=== PATIENT | female | born 1980 | race Caucasian/White ===

== ENCOUNTER 2019-06-19 18:26 | Inpatient (IN) | payer OTHER ==
[~2019-06-19] VITALS: Ht 172.7 cm; Wt 90.3 kg
[~2019-06-19 18:26] MED LIST: METF-445 PO
[2019-06-19] MEDS ORDERED: DOXY100C PO (18:55)
[2019-06-19 19:01] LABS: GLUCOSE,POINT OF CARE 205 MG/DL (70-110)
[2019-06-19] MEDS ORDERED: CeFAZolin 1 GM/DEXTROSE 50 ML IV ONE (20:45)
[2019-06-19 20:50] LABS: BASOPHILS % (AUTO) 0.7 % (0.0-2.0); EOSINOPHILS % (AUTO) 5.6 % (1.0-6.0); HEMATOCRIT 37.8 % (36-46); HEMOGLOBIN 12.7 g/dL (12.0-16.0); LYMPHOCYTES # (AUTO) 3.2 K/uL (1.0-4.8); LYMPHOCYTES % (AUTO) 40.7 % (22.0-44.0); MEAN CORPUSCULAR HGB CONC 33.7 G/dL (31.0-37.0); MEAN CORPUSCULAR VOLUME 86 fL (80-100); MONOCYTES # (AUTO) 0.6 K/uL (0.1-1.0); NEUTROPHILS # (AUTO) 3.6 K/uL (1.8-7.7); PLATELET COUNT (AUTO) 321 K/uL (150-450); RED CELL DISTRIBUTION WIDTH 13.8 % (11.5-14.5)
[2019-06-19 21:11] LABS: CALCIUM, TOTAL 8.9 mg/dL (8.8-10.5); CREATININE 1.25 mg/dL (0.60-1.30)
[2019-06-19 21:18] LABS: ALBUMIN 3.7 g/dL (3.4-5.0); BILIRUBIN,TOTAL 0.3 mg/dL (0.1-1.0); TOTAL PROTEIN, SERUM 8.6 g/dL (6.4-8.2)
[2019-06-19] MEDS ORDERED: ACETAMINOPHEN 325 MG TABLET PO PRN ×2 (21:30→22:30)
[2019-06-19] MEDS ORDERED: ONDANSETRON HCL 4 MG/2 ML VIAL IVP PRN ×2 (21:30→22:30)
[2019-06-19] MEDS ORDERED: 0.9% SODIUM CHLORIDE 10 ML SYRINGE IVP PRN (21:30)
[2019-06-19] MEDS ORDERED: ZOLPIDEM TARTRATE 5 MG TABLET PO PRN (22:30)
[2019-06-19] MEDS ORDERED: BISACODYL 10 MG RECTAL RECTAL SUPPOSITORY PR PRN (22:30)
[2019-06-19] MEDS ORDERED: MORPHINE SULFATE 2 MG/ML SYRINGE IVP PRN (22:30)
[2019-06-19] MEDS ORDERED: MAGNESIUM HYDROXIDE SUSPENSION 30 ML UDCUP PO PRN (22:30)
[2019-06-19 23:14] VITALS: BP 133/77
[2019-06-19] MEDS: HYDROCODONE/ACETAMINOPHEN 5-325 MG TABLET PO PRN (23:31)
[2019-06-19] MEDS: HEPARIN SODIUM,PORCINE 5,000 UNITS/ML VIAL SQ SCH (23:31)
[2019-06-20] MEDS ORDERED: SODIUM CHLORIDE 0.9% 500 ML IV ONE (01:50)
[2019-06-20] MEDS: CeFAZolin 2 GM/DEXTROSE 50 ML IV SCH ×2 (02:07→14:23)
[2019-06-20 04:34] VITALS: BP 133/82
[2019-06-20] MEDS ORDERED: DEXTROSE 50%-WATER 25 GM/50 ML SYRINGE IVP PRN (06:00)
[2019-06-20 06:22] LABS: BASOPHILS % (AUTO) 0.6 % (0.0-2.0); EOSINOPHILS % (AUTO) 6.9 % (1.0-6.0); HEMATOCRIT 33.3 % (36-46); HEMOGLOBIN 11.1 g/dL (12.0-16.0); LYMPHOCYTES # (AUTO) 3.2 K/uL (1.0-4.8); MEAN CORPUSCULAR HEMOGLOBIN 28.5 pg (26.0-34.0); MEAN CORPUSCULAR HGB CONC 33.2 G/dL (31.0-37.0); MEAN CORPUSCULAR VOLUME 86 fL (80-100); MONOCYTES # (AUTO) 0.6 K/uL (0.1-1.0); MONOCYTES % (AUTO) 8.2 % (2.0-9.0); NEUTROPHILS # (AUTO) 3.4 K/uL (1.8-7.7); NEUTROPHILS % (AUTO) 43.3 % (40.0-70.0); PLATELET COUNT (AUTO) 297 K/uL (150-450); RED BLOOD CELL COUNT(AUTO) 3.88 MIL/uL (4.00-5.20); RED CELL DISTRIBUTION WIDTH 13.8 % (11.5-14.5)
[2019-06-20] MEDS: INSULIN LISPRO 100 UNITS/ML SQ PRN ×4 (06:47→17:48)
[2019-06-20 06:48] LABS: CALCIUM, TOTAL 8.9 mg/dL (8.8-10.5); CREATININE 1.28 mg/dL (0.60-1.30); POTASSIUM 4.3 mmol/L (3.5-5.1)
[2019-06-20 07:47] VITALS: BP 114/82
[2019-06-20] MEDS: HYDROCODONE/ACETAMINOPHEN 5-325 MG TABLET PO PRN ×3 (07:47→19:44)
[2019-06-20 07:51] LABS: GLUCOMETER DEV NAME(LOC) 6N.1; GLUCOSE,POINT OF CARE 213 MG/DL (70-110)
[2019-06-20 08:16] LABS: GLUCOMETER DEV NAME(LOC) 6N.1; GLUCOSE,POINT OF CARE 192 MG/DL (70-110)
[2019-06-20] MEDS: HEPARIN SODIUM,PORCINE 5,000 UNITS/ML VIAL SQ SCH ×2 (08:58→16:04)
[2019-06-20] MEDS: MetFORMIN HCL 850 MG TABLET PO SCH ×2 (08:58→17:54)
[2019-06-20] MEDS: DOCUSATE SODIUM 100 MG CAPSULE PO SCH ×2 (08:58→19:44)
[2019-06-20] MEDS ORDERED: PANTOPRAZOLE SODIUM 40 MG DR TABLET PO SCH (09:00)
[2019-06-20 11:41] VITALS: BP 153/81
[2019-06-20 11:41] LABS: INR 0.9 (0.9-1.1); PROTHROMBIN TIME 9.6 SEC (9.4-11.6)
[2019-06-20 12:06] LABS: GLUCOMETER DEV NAME(LOC) 6N.1; GLUCOSE,POINT OF CARE 173 MG/DL (70-110)
[2019-06-20 16:15] VITALS: BP 126/75
[2019-06-20] MEDS ORDERED: HEPARIN SODIUM 1000 UNITS/NS 500 ML ONE (18:04)
[2019-06-20 18:38] LABS: GLUCOMETER DEV NAME(LOC) 6N.2; GLUCOSE,POINT OF CARE 153 MG/DL (70-110)
[2019-06-20 19:58] VITALS: BP 151/78
[2019-06-21] MEDS ORDERED: MULTIVITAMINS, THERAPEUTIC TABLET PO SCH (09:00)
== END 2019-06-20 19:45 | DRG 344 ==
LOC: EMS 18:27 → 6N 21:40
PROVIDERS: ADMIT Internal Medicine; ATTEND Internal Medicine
PROC: 02HV33Z Insertion of Infusion Device into Superior Vena Cava, Percutaneous Approach (ICD-10-PCS; principal; 2019-06-20)
PROC: B548ZZA Ultrasonography of Superior Vena Cava, Guidance (ICD-10-PCS; 2019-06-20)
PROC: 0JBQ0ZZ Excision of Right Foot Subcutaneous Tissue and Fascia, Open Approach (ICD-10-PCS; 2019-06-20)
DX: E11.69 Type 2 diabetes mellitus with other specified complication (principal); M86.8X7 Other osteomyelitis, ankle and foot; E11.621 Type 2 diabetes mellitus with foot ulcer; E11.65 Type 2 diabetes mellitus with hyperglycemia; F17.200 Nicotine dependence, unspecified, uncomplicated; E66.9 Obesity, unspecified; Z79.899 Other long term (current) drug therapy; L97.519 Non-pressure chronic ulcer of other part of right foot with unspecified severity; Z91.19 Patient's noncompliance with other medical treatment and regimen
CPT/HCPCS: 36569; 76937; 87081; 96365; J0690; J1644; J7040

== ENCOUNTER 2019-11-22 12:10 | Inpatient (IN) | payer OTHER ==
[~2019-11-22] VITALS: Ht 172.7 cm; Wt 90.5 kg
[~2019-11-22 12:10] MED LIST changes: +DOXY100C PO
[2019-11-22] MEDS ORDERED: METF-960 PO (12:39)
[2019-11-22 12:44] LABS: GLUCOSE,POINT OF CARE 298 MG/DL (70-110)
[2019-11-22] MEDS ORDERED: VANCOMYCIN HCL 1 GM/D5% WATER 200 ML IV ONE (14:15)
[2019-11-22] MEDS ORDERED: HYDROCODONE/ACETAMINOPHEN 5-325 MG TABLET PO PRN (15:15)
[2019-11-22] MEDS ORDERED: ACETAMINOPHEN 325 MG TABLET PO PRN (15:15)
[2019-11-22] MEDS ORDERED: DEXTROSE 50%-WATER 25 GM/50 ML SYRINGE IVP PRN (15:15)
[2019-11-22 15:18] LABS: BASOPHILS % (AUTO) 0.7 % (0.0-2.0); EOSINOPHILS % (AUTO) 4.4 % (1.0-6.0); HEMATOCRIT 39.5 % (36-46); HEMOGLOBIN 13.6 g/dL (12.0-16.0); LYMPHOCYTES # (AUTO) 2.1 K/uL (1.0-4.8); LYMPHOCYTES % (AUTO) 19.6 % (22.0-44.0); MEAN CORPUSCULAR HEMOGLOBIN 27.8 pg (26.0-34.0); MEAN CORPUSCULAR HGB CONC 34.5 G/dL (31.0-37.0); MEAN CORPUSCULAR VOLUME 81 fL (80-100); MONOCYTES # (AUTO) 0.6 K/uL (0.1-1.0); MONOCYTES % (AUTO) 5.6 % (2.0-9.0); NEUTROPHILS # (AUTO) 7.5 K/uL (1.8-7.7); NEUTROPHILS % (AUTO) 69.7 % (40.0-70.0); PLATELET COUNT (AUTO) 491 K/uL (150-450); RED CELL DISTRIBUTION WIDTH 13.4 % (11.5-14.5)
[2019-11-22 15:31] LABS: INR 0.9 (0.9-1.1); PROTHROMBIN TIME 9.5 SEC (9.4-11.6)
[2019-11-22 16:24] LABS: ERYTHROCYTE SEDIMENTATION RATE 60 MM/HR (0-20)
[2019-11-22 16:40] LABS: ANION GAP 6 mmol/L (8-16); CARBON DIOXIDE 30 mmol/L (22-29); CHLORIDE 97 mmol/L (98-107); CREATININE 1.13 mg/dL (0.60-1.30); GLOMERULAR FILTR. RATE CALC 53 mL/min (>60); GLUCOSE,RANDOM 294 mg/dL (70-110); POTASSIUM 4.4 mmol/L (3.5-5.1); SODIUM SERUM 133 mmol/L (136-145); UREA NITROGEN, BLOOD 16 mg/dL (7-18)
[2019-11-22 16:46] VITALS: BP 146/76
[2019-11-22 16:51] LABS: ALANINE AMINOTRANSFERASE 38 U/L (12-78); ALBUMIN 2.5 g/dL (3.4-5.0); ALKALINE PHOSPHATASE 186 U/L (46-116); ASPARTATE AMINOTRANSFERASE 18 U/L (15-37); BILIRUBIN,TOTAL 0.2 mg/dL (0.1-1.0); C-REACTIVE PROTEIN QUANT 5.31 mg/dL (0.00-0.30); HCG,QUANTITATIVE < 1 mIU/mL (0-6); TOTAL PROTEIN, SERUM 8.3 g/dL (6.4-8.2)
[2019-11-22] MEDS ORDERED: PIPERACILLIN SODIUM/TAZOBACTAM 4.5 GM in DEXTROSE 5%-WATER 100 ML IV SCH (17:30)
[2019-11-22] MEDS: NICOTINE 21 MG/24 HOUR PATCH TD SCH ×2 (17:45→18:30)
[2019-11-22] MEDS: HEPARIN SODIUM,PORCINE 5,000 UNITS/ML VIAL SQ SCH (18:01)
[2019-11-22] MEDS: INSULIN LISPRO 100 UNITS/ML SQ PRN (18:02)
[2019-11-22] MEDS: PIPERACILLIN/TAZO 3.375 GM/D5W 50 ML IV SCH (18:24)
[2019-11-22] MEDS ORDERED: INSULIN GLARGINE,HUM.REC.ANLOG 100 UNITS/ML SQ SCH (21:00)
[2019-11-22] MEDS ORDERED: INSULIN GLARGINE,HUM.REC.ANLOG 100 UNITS/ML SQ ONE (22:00)
[2019-11-22 22:23] VITALS: BP 148/86
[2019-11-23] VITALS (7 sets, daily range): BP systolic 130–147; BP diastolic 80–86
[2019-11-23] MEDS: HEPARIN SODIUM,PORCINE 5,000 UNITS/ML VIAL SQ SCH ×3 (00:03→06:45)
[2019-11-23] MEDS: PIPERACILLIN/TAZO 3.375 GM/D5W 50 ML IV SCH ×5 (00:07→23:45)
[2019-11-23] MEDS: SODIUM CHLORIDE 0.9% 1,000 ML IV SCH ×2 (00:11→11:20)
[2019-11-23] MEDS: INSULIN LISPRO 100 UNITS/ML SQ PRN ×4 (05:58→20:59)
[2019-11-23] MEDS ORDERED: INSULIN GLARGINE,HUM.REC.ANLOG 100 UNITS/ML SQ ONE (07:45)
[2019-11-23] MEDS: VANCOMYCIN HCL 1.25 GM in DEXTROSE 5%-WATER 250 ML IV SCH ×2 (08:44→20:53)
[2019-11-23] MEDS: NICOTINE 21 MG/24 HOUR PATCH TD SCH (08:46)
[2019-11-23 09:15] LABS: BASOPHILS % (AUTO) 0.7 % (0.0-2.0); EOSINOPHILS % (AUTO) 5.5 % (1.0-6.0); HEMATOCRIT 37.1 % (36-46); HEMOGLOBIN 12.8 g/dL (12.0-16.0); LYMPHOCYTES # (AUTO) 2.6 K/uL (1.0-4.8); LYMPHOCYTES % (AUTO) 37.2 % (22.0-44.0); MEAN CORPUSCULAR HEMOGLOBIN 27.7 pg (26.0-34.0); MEAN CORPUSCULAR HGB CONC 34.5 G/dL (31.0-37.0); MEAN CORPUSCULAR VOLUME 80 fL (80-100); MONOCYTES # (AUTO) 0.5 K/uL (0.1-1.0); MONOCYTES % (AUTO) 7.1 % (2.0-9.0); NEUTROPHILS # (AUTO) 3.5 K/uL (1.8-7.7); NEUTROPHILS % (AUTO) 49.5 % (40.0-70.0); PLATELET COUNT (AUTO) 433 K/uL (150-450); RED BLOOD CELL COUNT(AUTO) 4.61 MIL/uL (4.00-5.20); RED CELL DISTRIBUTION WIDTH 13.4 % (11.5-14.5)
[2019-11-23 09:33] LABS: PROTHROMBIN TIME 10.2 SEC (9.4-11.6)
[2019-11-23 09:36] LABS: ALBUMIN 2.4 g/dL (3.4-5.0); BILIRUBIN,TOTAL 0.3 mg/dL (0.1-1.0); CALCIUM, TOTAL 8.7 mg/dL (8.8-10.5); CHOL/HDL RATIO 6.5 (3.9-5.7); CREATININE 1.22 mg/dL (0.60-1.30); POTASSIUM 4.3 mmol/L (3.5-5.1); TOTAL PROTEIN, SERUM 8.1 g/dL (6.4-8.2)
[2019-11-23] MEDS: OMEGA-3/DHA/EPA/FISH OIL 1,000 MG CAPSULE PO SCH (21:36)
[2019-11-23] MEDS: FENOFIBRATE 48 MG TABLET PO SCH (21:37)
[2019-11-24] MEDS: PIPERACILLIN/TAZO 3.375 GM/D5W 50 ML IV SCH ×3 (04:20→17:46)
[2019-11-24] MEDS: SODIUM CHLORIDE 0.9% 1,000 ML IV SCH (04:20)
[2019-11-24 04:27] VITALS: BP 127/79
[2019-11-24] MEDS: RINGERS SOLUTION,LACTATED 1,000 ML IV SCH ×2 (06:29→06:59)
[2019-11-24 06:42] LABS: CALCIUM, TOTAL 8.8 mg/dL (8.8-10.5); CREATININE 1.39 mg/dL (0.60-1.30); POTASSIUM 4.3 mmol/L (3.5-5.1)
[2019-11-24] MEDS ORDERED: SODIUM CL IRRIG SOLN BAG 3,000 ML IRRIG ONE (06:51)
[2019-11-24] MEDS ORDERED: BACITRACIN 50,000 UNITS/VIAL ONE (06:52)
[2019-11-24] MEDS ORDERED: BUPIVACAINE HCL/PF 0.25% 30 ML VIAL ONE (06:53)
[2019-11-24] MEDS ORDERED: LIDOCAINE/PF 1% 30 ML VIAL ONE (06:53)
[2019-11-24] MEDS ORDERED: PROPOFOL 1000 MG/ISO-OSM 100 ML IV ONE (07:03)
[2019-11-24] MEDS ORDERED: KETOROLAC TROMETHAMINE 30 MG/ML VIAL IVP PRN (07:30)
[2019-11-24] MEDS ORDERED: HYDROmorphone 2 MG/ML SYRINGE IVP PRN ×3 (07:30→16:00)
[2019-11-24] MEDS ORDERED: ONDANSETRON HCL 4 MG/2 ML VIAL IVP PRN (07:30)
[2019-11-24] MEDS ORDERED: ACETAMINOPHEN 1000 MG/ISO-OSM 100 ML IV ONE ×2 (07:30→10:20)
[2019-11-24] MEDS ORDERED: THROMBIN, BOVINE 20000 UNITS/VIAL POWDER TP ONE (07:47)
[2019-11-24] MEDS ORDERED: GELATIN SPONGE,ABSORBABLE 100 MM TP ONE (07:47)
[2019-11-24] MEDS: VANCOMYCIN HCL 1.25 GM in DEXTROSE 5%-WATER 250 ML IV SCH ×2 (08:22→20:01)
[2019-11-24] MEDS: NICOTINE 21 MG/24 HOUR PATCH TD SCH (09:00)
[2019-11-24] MEDS: OMEGA-3/DHA/EPA/FISH OIL 1,000 MG CAPSULE PO SCH (11:03)
[2019-11-24] MEDS: FENOFIBRATE 48 MG TABLET PO SCH (11:03)
[2019-11-24] MEDS: INSULIN LISPRO 100 UNITS/ML SQ PRN ×3 (11:10→20:34)
[2019-11-24 11:24] VITALS: BP 118/66
[2019-11-24] MEDS ORDERED: FentaNYL CITRATE-PF 100 MCG/2 ML VIAL IVP ONE (12:00)
[2019-11-24] MEDS ORDERED: PROPOFOL 1% 20 ML VIAL IVP ONE (12:00)
[2019-11-24] MEDS ORDERED: MIDAZOLAM HCL 2 MG/2 ML VIAL IVP ONE (12:00)
[2019-11-24] MEDS ORDERED: KETAMINE HCL 50 MG/ML 10 ML VIAL IVP ONE (12:00)
[2019-11-24] MEDS ORDERED: LIDOCAINE/PF 2% 5 ML SYRINGE IVP ONE (12:00)
[2019-11-24] MEDS ORDERED: HYDROCODONE/ACETAMINOPHEN 5-325 MG TABLET PO ONE (15:15)
[2019-11-24] MEDS: CYCLOBENZAPRINE HCL 10 MG TABLET PO SCH ×2 (15:30→20:02)
[2019-11-24 16:31] VITALS: BP 132/85
[2019-11-24] MEDS ORDERED: ENOXAPARIN SODIUM 40 MG/0.4 ML PF SYRINGE SQ SCH (17:15)
[2019-11-24] MEDS: HYDROmorphone 2 MG/ML SYRINGE IVP PRN ×2 (17:56→21:59)
[2019-11-24] MEDS: ENOXAPARIN SODIUM 40 MG/0.4 ML PF SYRINGE SQ SCH (20:02)
[2019-11-24] MEDS: HYDROCODONE/ACETAMINOPHEN 5-325 MG TABLET PO PRN (20:02)
[2019-11-24] MEDS: MUPIROCIN CALCIUM 2% 22 GM OINTMENT NASAL SCH (20:02)
[2019-11-24] MEDS: INSULIN GLARGINE,HUM.REC.ANLOG 100 UNITS/ML SQ SCH (20:33)
[2019-11-24 20:45] VITALS: BP 113/66
[2019-11-24 23:55] VITALS: BP 109/70
[2019-11-25] MEDS: PIPERACILLIN/TAZO 3.375 GM/D5W 50 ML IV SCH ×5 (00:10→23:17)
[2019-11-25] MEDS: HYDROmorphone 2 MG/ML SYRINGE IVP PRN ×5 (02:40→21:56)
[2019-11-25 04:40] VITALS: BP 126/71
[2019-11-25] MEDS: HYDROCODONE/ACETAMINOPHEN 5-325 MG TABLET PO PRN ×2 (05:19→10:17)
[2019-11-25] MEDS: INSULIN LISPRO 100 UNITS/ML SQ PRN ×4 (05:23→20:16)
[2019-11-25 06:48] LABS: BASOPHILS % (AUTO) 0.7 % (0.0-2.0); EOSINOPHILS % (AUTO) 4.3 % (1.0-6.0); HEMATOCRIT 36.3 % (36-46); HEMOGLOBIN 12.2 g/dL (12.0-16.0); LYMPHOCYTES # (AUTO) 2.9 K/uL (1.0-4.8); LYMPHOCYTES % (AUTO) 30.7 % (22.0-44.0); MEAN CORPUSCULAR HEMOGLOBIN 27.2 pg (26.0-34.0); MEAN CORPUSCULAR HGB CONC 33.5 G/dL (31.0-37.0); MEAN CORPUSCULAR VOLUME 81 fL (80-100); MONOCYTES # (AUTO) 0.7 K/uL (0.1-1.0); MONOCYTES % (AUTO) 6.9 % (2.0-9.0); NEUTROPHILS # (AUTO) 5.5 K/uL (1.8-7.7); NEUTROPHILS % (AUTO) 57.4 % (40.0-70.0); PLATELET COUNT (AUTO) 467 K/uL (150-450); RED BLOOD CELL COUNT(AUTO) 4.47 MIL/uL (4.00-5.20); RED CELL DISTRIBUTION WIDTH 13.7 % (11.5-14.5)
[2019-11-25 07:00] LABS: CALCIUM, TOTAL 8.5 mg/dL (8.8-10.5); CREATININE 1.35 mg/dL (0.60-1.30); POTASSIUM 4.3 mmol/L (3.5-5.1); VANCOMYCIN,RANDOM 23.7 mcg/mL (25.0-50.0)
[2019-11-25 07:10] VITALS: BP 120/80
[2019-11-25] MEDS: VANCOMYCIN HCL 1.25 GM in DEXTROSE 5%-WATER 250 ML IV SCH (07:51)
[2019-11-25] MEDS: FENOFIBRATE 48 MG TABLET PO SCH (07:52)
[2019-11-25] MEDS: ENOXAPARIN SODIUM 40 MG/0.4 ML PF SYRINGE SQ SCH (07:52)
[2019-11-25] MEDS: OMEGA-3/DHA/EPA/FISH OIL 1,000 MG CAPSULE PO SCH (07:52)
[2019-11-25] MEDS: NICOTINE 21 MG/24 HOUR PATCH TD SCH (07:52)
[2019-11-25] MEDS: MUPIROCIN CALCIUM 2% 22 GM OINTMENT NASAL SCH ×2 (07:52→20:12)
[2019-11-25] MEDS: CYCLOBENZAPRINE HCL 10 MG TABLET PO SCH ×3 (08:00→20:13)
[2019-11-25 11:20] VITALS: BP 112/63
[2019-11-25 15:20] VITALS: BP 126/86
[2019-11-25 19:04] VITALS: BP 109/70
[2019-11-25] MEDS: VANCOMYCIN HCL 1 GM/D5% WATER 200 ML IV SCH (20:12)
[2019-11-25] MEDS: INSULIN GLARGINE,HUM.REC.ANLOG 100 UNITS/ML SQ SCH (20:13)
[2019-11-25 20:50] LABS: GLUCOMETER DEV NAME(LOC) 4E.2; GLUCOSE,POINT OF CARE 249 MG/DL (70-110)
[2019-11-25 20:50] LABS: GLUCOMETER DEV NAME(LOC) 4E.2; GLUCOSE,POINT OF CARE 255 MG/DL (70-110)
[2019-11-25 20:50] LABS: GLUCOMETER DEV NAME(LOC) 4E.2; GLUCOSE,POINT OF CARE 224 MG/DL (70-110)
[2019-11-25 20:50] LABS: GLUCOMETER DEV NAME(LOC) 4E.2; GLUCOSE,POINT OF CARE 281 MG/DL (70-110)
[2019-11-25 20:50] LABS: GLUCOMETER DEV NAME(LOC) 4E.2; GLUCOSE,POINT OF CARE 209 MG/DL (70-110)
[2019-11-25 20:50] LABS: GLUCOMETER DEV NAME(LOC) 4E.2; GLUCOSE,POINT OF CARE 281 MG/DL (70-110)
[2019-11-25 20:51] LABS: GLUCOMETER DEV NAME(LOC) 4E.2; GLUCOSE,POINT OF CARE 285 MG/DL (70-110)
[2019-11-25 20:51] LABS: GLUCOMETER DEV NAME(LOC) 4E.2; GLUCOSE,POINT OF CARE 222 MG/DL (70-110)
[2019-11-25 20:51] LABS: GLUCOMETER DEV NAME(LOC) 4E.2; GLUCOSE,POINT OF CARE 173 MG/DL (70-110)
[2019-11-25 20:51] LABS: GLUCOMETER DEV NAME(LOC) 4E.2; GLUCOSE,POINT OF CARE 234 MG/DL (70-110)
[2019-11-25 20:51] LABS: GLUCOMETER DEV NAME(LOC) 4E.2; GLUCOSE,POINT OF CARE 203 MG/DL (70-110)
[2019-11-25 20:51] LABS: GLUCOMETER DEV NAME(LOC) 4E.2; GLUCOSE,POINT OF CARE 202 MG/DL (70-110)
[2019-11-25 20:51] LABS: GLUCOMETER DEV NAME(LOC) 4E.2; GLUCOSE,POINT OF CARE 200 MG/DL (70-110)
[2019-11-25 20:52] LABS: GLUCOMETER DEV NAME(LOC) 4E.2; GLUCOSE,POINT OF CARE 150 MG/DL (70-110)
[2019-11-25 20:52] LABS: GLUCOMETER DEV NAME(LOC) 4E.2; GLUCOSE,POINT OF CARE 195 MG/DL (70-110)
[2019-11-26 00:12] VITALS: BP 117/65
[2019-11-26 03:40] VITALS: BP 124/76
[2019-11-26] MEDS: HYDROmorphone 2 MG/ML SYRINGE IVP PRN ×4 (03:43→20:30)
[2019-11-26] MEDS: PIPERACILLIN/TAZO 3.375 GM/D5W 50 ML IV SCH ×2 (05:47→11:48)
[2019-11-26] MEDS: INSULIN LISPRO 100 UNITS/ML SQ PRN ×4 (05:50→20:38)
[2019-11-26 07:31] VITALS: BP 110/82
[2019-11-26] MEDS: ENOXAPARIN SODIUM 40 MG/0.4 ML PF SYRINGE SQ SCH (08:23)
[2019-11-26] MEDS: CYCLOBENZAPRINE HCL 10 MG TABLET PO SCH ×3 (08:23→20:29)
[2019-11-26] MEDS: VANCOMYCIN HCL 1 GM/D5% WATER 200 ML IV SCH ×2 (08:23→20:34)
[2019-11-26] MEDS: FENOFIBRATE 48 MG TABLET PO SCH (08:23)
[2019-11-26] MEDS: OMEGA-3/DHA/EPA/FISH OIL 1,000 MG CAPSULE PO SCH (08:23)
[2019-11-26] MEDS: NICOTINE 21 MG/24 HOUR PATCH TD SCH (08:24)
[2019-11-26] MEDS: MUPIROCIN CALCIUM 2% 22 GM OINTMENT NASAL SCH ×2 (08:24→20:34)
[2019-11-26 20:00] VITALS: BP 132/85
[2019-11-26] MEDS ORDERED: INSULIN GLARGINE,HUM.REC.ANLOG 100 UNITS/ML SQ SCH (21:00)
[2019-11-26] MEDS: HYDROCODONE/ACETAMINOPHEN 5-325 MG TABLET PO PRN (22:55)
[2019-11-26 23:18] VITALS: BP 124/87
[2019-11-27] MEDS: HYDROmorphone 2 MG/ML SYRINGE IVP PRN ×5 (01:44→21:04)
[2019-11-27 04:00] VITALS: BP 130/78
[2019-11-27] MEDS: HYDROCODONE/ACETAMINOPHEN 5-325 MG TABLET PO PRN ×4 (04:40→17:16)
[2019-11-27] MEDS: INSULIN LISPRO 100 UNITS/ML SQ PRN ×3 (06:08→21:20)
[2019-11-27 06:09] LABS: BASOPHILS % (AUTO) 0.7 % (0.0-2.0); EOSINOPHILS % (AUTO) 9.4 % (1.0-6.0); HEMATOCRIT 32.3 % (36-46); HEMOGLOBIN 11.3 g/dL (12.0-16.0); LYMPHOCYTES # (AUTO) 3.2 K/uL (1.0-4.8); LYMPHOCYTES % (AUTO) 37.2 % (22.0-44.0); MEAN CORPUSCULAR HEMOGLOBIN 28.2 pg (26.0-34.0); MEAN CORPUSCULAR HGB CONC 34.8 G/dL (31.0-37.0); MEAN CORPUSCULAR VOLUME 81 fL (80-100); MONOCYTES # (AUTO) 0.7 K/uL (0.1-1.0); MONOCYTES % (AUTO) 7.8 % (2.0-9.0); NEUTROPHILS # (AUTO) 3.9 K/uL (1.8-7.7); NEUTROPHILS % (AUTO) 44.9 % (40.0-70.0); PLATELET COUNT (AUTO) 466 K/uL (150-450); RED BLOOD CELL COUNT(AUTO) 3.99 MIL/uL (4.00-5.20); RED CELL DISTRIBUTION WIDTH 13.8 % (11.5-14.5)
[2019-11-27 06:33] LABS: ALBUMIN 2.4 g/dL (3.4-5.0); BILIRUBIN,TOTAL 0.2 mg/dL (0.1-1.0); C-REACTIVE PROTEIN QUANT 3.43 mg/dL (0.00-0.30); CALCIUM, TOTAL 8.6 mg/dL (8.8-10.5); CREATININE 1.34 mg/dL (0.60-1.30); POTASSIUM 4.2 mmol/L (3.5-5.1); TOTAL PROTEIN, SERUM 8.1 g/dL (6.4-8.2); VANCOMYCIN,RANDOM 22.9 mcg/mL (25.0-50.0)
[2019-11-27 07:36] VITALS: BP 107/70
[2019-11-27] MEDS: FENOFIBRATE 48 MG TABLET PO SCH (07:55)
[2019-11-27] MEDS: MUPIROCIN CALCIUM 2% 22 GM OINTMENT NASAL SCH ×2 (07:55→20:58)
[2019-11-27] MEDS: OMEGA-3/DHA/EPA/FISH OIL 1,000 MG CAPSULE PO SCH (07:55)
[2019-11-27] MEDS: ENOXAPARIN SODIUM 40 MG/0.4 ML PF SYRINGE SQ SCH (07:55)
[2019-11-27] MEDS: CYCLOBENZAPRINE HCL 10 MG TABLET PO SCH ×3 (07:55→20:59)
[2019-11-27] MEDS: VANCOMYCIN HCL 1 GM/D5% WATER 200 ML IV SCH ×2 (07:56→20:58)
[2019-11-27] MEDS: MULTIVITAMINS WITH MINERALS, THERAPEUTIC TABLET PO SCH (07:56)
[2019-11-27] MEDS: NICOTINE 21 MG/24 HOUR PATCH TD SCH (07:59)
[2019-11-27 11:42] VITALS: BP 134/59
[2019-11-27] MEDS ORDERED: GADOBUTROL 1 MMOL/ML 10 ML VIAL IVP ONE (11:42)
[2019-11-27 15:46] VITALS: BP 130/74
[2019-11-27 19:26] VITALS: BP 130/77
[2019-11-27] MEDS: INSULIN GLARGINE,HUM.REC.ANLOG 100 UNITS/ML SQ SCH (21:28)
[2019-11-27 23:36] VITALS: BP 142/78
[2019-11-28] MEDS: HYDROmorphone 2 MG/ML SYRINGE IVP PRN ×5 (02:24→20:36)
[2019-11-28 04:45] VITALS: BP 117/75
[2019-11-28 06:52] LABS: CALCIUM, TOTAL 8.9 mg/dL (8.8-10.5); CREATININE 1.51 mg/dL (0.60-1.30); POTASSIUM 4.1 mmol/L (3.5-5.1)
[2019-11-28 08:07] VITALS: BP 111/66
[2019-11-28] MEDS: VANCOMYCIN HCL 1 GM/D5% WATER 200 ML IV SCH ×2 (08:55→20:35)
[2019-11-28] MEDS: MULTIVITAMINS WITH MINERALS, THERAPEUTIC TABLET PO SCH (08:56)
[2019-11-28] MEDS: ENOXAPARIN SODIUM 40 MG/0.4 ML PF SYRINGE SQ SCH (08:56)
[2019-11-28] MEDS: OMEGA-3/DHA/EPA/FISH OIL 1,000 MG CAPSULE PO SCH (08:56)
[2019-11-28] MEDS: CYCLOBENZAPRINE HCL 10 MG TABLET PO SCH ×3 (08:56→20:36)
[2019-11-28] MEDS: FENOFIBRATE 48 MG TABLET PO SCH (08:56)
[2019-11-28] MEDS: NICOTINE 21 MG/24 HOUR PATCH TD SCH (08:57)
[2019-11-28] MEDS: HYDROCODONE/ACETAMINOPHEN 5-325 MG TABLET PO PRN ×3 (09:09→23:25)
[2019-11-28] MEDS: MUPIROCIN CALCIUM 2% 22 GM OINTMENT NASAL SCH ×2 (10:34→20:36)
[2019-11-28 11:24] VITALS: BP 123/72
[2019-11-28] MEDS: INSULIN LISPRO 100 UNITS/ML SQ PRN ×3 (12:00→20:37)
[2019-11-28] MEDS: LEVOFLOXACIN 250 MG TABLET PO SCH (15:56)
[2019-11-28 16:13] VITALS: BP 124/73
[2019-11-28 20:01] VITALS: BP 123/75
[2019-11-28] MEDS: INSULIN GLARGINE,HUM.REC.ANLOG 100 UNITS/ML SQ SCH (20:37)
[2019-11-28 23:25] VITALS: BP 135/76
[2019-11-29 04:23] VITALS: BP 145/78
[2019-11-29] MEDS: HYDROmorphone 2 MG/ML SYRINGE IVP PRN ×4 (05:43→23:20)
[2019-11-29] MEDS: INSULIN LISPRO 100 UNITS/ML SQ PRN ×4 (05:44→20:43)
[2019-11-29 06:18] LABS: CALCIUM, TOTAL 8.2 mg/dL (8.8-10.5); CREATININE 1.48 mg/dL (0.60-1.30)
[2019-11-29 07:32] VITALS: BP 127/79
[2019-11-29] MEDS: NICOTINE 21 MG/24 HOUR PATCH TD SCH (08:14)
[2019-11-29] MEDS: VANCOMYCIN HCL 1 GM/D5% WATER 200 ML IV SCH ×2 (08:31→20:42)
[2019-11-29] MEDS: OMEGA-3/DHA/EPA/FISH OIL 1,000 MG CAPSULE PO SCH (08:32)
[2019-11-29] MEDS: MUPIROCIN CALCIUM 2% 22 GM OINTMENT NASAL SCH ×2 (08:32→20:42)
[2019-11-29] MEDS: MULTIVITAMINS WITH MINERALS, THERAPEUTIC TABLET PO SCH (08:33)
[2019-11-29] MEDS: CYCLOBENZAPRINE HCL 10 MG TABLET PO SCH ×3 (08:33→20:42)
[2019-11-29] MEDS: FENOFIBRATE 48 MG TABLET PO SCH (08:34)
[2019-11-29] MEDS: ENOXAPARIN SODIUM 40 MG/0.4 ML PF SYRINGE SQ SCH (08:34)
[2019-11-29] MEDS: HYDROCODONE/ACETAMINOPHEN 5-325 MG TABLET PO PRN ×3 (08:38→20:41)
[2019-11-29] MEDS ORDERED: INSULIN GLARGINE,HUM.REC.ANLOG 100 UNITS/ML SQ SCH ×2 (10:00→21:00)
[2019-11-29] MEDS ORDERED: DEXTROSE 50%-WATER 25 GM/50 ML SYRINGE IVP PRN (10:15)
[2019-11-29 11:00] VITALS: BP 114/80
[2019-11-29 15:10] VITALS: BP 127/75
[2019-11-29 19:51] VITALS: BP 124/75
[2019-11-29] MEDS: INSULIN GLARGINE,HUM.REC.ANLOG 100 UNITS/ML SQ SCH (20:45)
[2019-11-29 23:25] VITALS: BP 131/76
[2019-11-30] MEDS: HYDROCODONE/ACETAMINOPHEN 5-325 MG TABLET PO PRN ×5 (01:19→20:46)
[2019-11-30] MEDS: HYDROmorphone 2 MG/ML SYRINGE IVP PRN ×5 (04:23→22:15)
[2019-11-30 04:39] VITALS: BP 158/87
[2019-11-30] MEDS: INSULIN LISPRO 100 UNITS/ML SQ PRN ×4 (05:26→20:51)
[2019-11-30 07:30] VITALS: BP 134/87
[2019-11-30 07:39] LABS: CREATININE 1.34 mg/dL (0.60-1.30); VANCOMYCIN,RANDOM 25.6 mcg/mL (25.0-50.0)
[2019-11-30] MEDS: VANCOMYCIN HCL 1 GM/D5% WATER 200 ML IV SCH (08:41)
[2019-11-30] MEDS: ENOXAPARIN SODIUM 40 MG/0.4 ML PF SYRINGE SQ SCH (08:49)
[2019-11-30] MEDS: MULTIVITAMINS WITH MINERALS, THERAPEUTIC TABLET PO SCH (08:49)
[2019-11-30] MEDS: LEVOFLOXACIN 250 MG TABLET PO SCH (08:49)
[2019-11-30] MEDS: FENOFIBRATE 48 MG TABLET PO SCH (08:49)
[2019-11-30] MEDS: OMEGA-3/DHA/EPA/FISH OIL 1,000 MG CAPSULE PO SCH (08:49)
[2019-11-30] MEDS: CYCLOBENZAPRINE HCL 10 MG TABLET PO SCH ×3 (08:50→20:46)
[2019-11-30] MEDS: MUPIROCIN CALCIUM 2% 22 GM OINTMENT NASAL SCH ×2 (08:50→20:47)
[2019-11-30] MEDS: INSULIN GLARGINE,HUM.REC.ANLOG 100 UNITS/ML SQ SCH ×2 (08:55→20:51)
[2019-11-30] MEDS: NICOTINE 21 MG/24 HOUR PATCH TD SCH (09:00)
[2019-11-30 13:09] LABS: GLUCOMETER DEV NAME(LOC) 6N.1; GLUCOSE,POINT OF CARE 129 MG/DL (70-110)
[2019-11-30 13:09] LABS: GLUCOMETER DEV NAME(LOC) 6N.1; GLUCOSE,POINT OF CARE 124 MG/DL (70-110)
[2019-11-30 13:09] LABS: GLUCOMETER DEV NAME(LOC) 6N.1; GLUCOSE,POINT OF CARE 167 MG/DL (70-110)
[2019-11-30 13:09] LABS: GLUCOMETER DEV NAME(LOC) 6N.1; GLUCOSE,POINT OF CARE 241 MG/DL (70-110)
[2019-11-30 13:09] LABS: GLUCOMETER DEV NAME(LOC) 6N.1; GLUCOSE,POINT OF CARE 164 MG/DL (70-110)
[2019-11-30 13:09] LABS: GLUCOMETER DEV NAME(LOC) 6N.1; GLUCOSE,POINT OF CARE 302 MG/DL (70-110)
[2019-11-30 13:10] LABS: GLUCOMETER DEV NAME(LOC) 4E.2; GLUCOSE,POINT OF CARE 191 MG/DL (70-110)
[2019-11-30 13:10] LABS: GLUCOMETER DEV NAME(LOC) 4E.2; GLUCOSE,POINT OF CARE 246 MG/DL (70-110)
[2019-11-30 13:10] LABS: GLUCOMETER DEV NAME(LOC) 4E.2; GLUCOSE,POINT OF CARE 232 MG/DL (70-110)
[2019-11-30 13:11] LABS: GLUCOMETER DEV NAME(LOC) 6N.1; GLUCOSE,POINT OF CARE 227 MG/DL (70-110)
[2019-11-30 13:11] LABS: GLUCOMETER DEV NAME(LOC) 4E.2; GLUCOSE,POINT OF CARE 138 MG/DL (70-110)
[2019-11-30 13:11] LABS: GLUCOMETER DEV NAME(LOC) 4E.2; GLUCOSE,POINT OF CARE 190 MG/DL (70-110)
[2019-11-30 13:11] LABS: GLUCOMETER DEV NAME(LOC) 4E.2; GLUCOSE,POINT OF CARE 154 MG/DL (70-110)
[2019-11-30 13:12] LABS: GLUCOMETER DEV NAME(LOC) 4E.2; GLUCOSE,POINT OF CARE 213 MG/DL (70-110)
[2019-11-30 13:12] LABS: GLUCOMETER DEV NAME(LOC) 4E.2; GLUCOSE,POINT OF CARE 126 MG/DL (70-110)
[2019-11-30 13:12] LABS: GLUCOMETER DEV NAME(LOC) 4E.2; GLUCOSE,POINT OF CARE 201 MG/DL (70-110)
[2019-11-30 13:12] LABS: GLUCOMETER DEV NAME(LOC) 4E.2; GLUCOSE,POINT OF CARE 274 MG/DL (70-110)
[2019-11-30 13:12] LABS: GLUCOMETER DEV NAME(LOC) 4E.2; GLUCOSE,POINT OF CARE 285 MG/DL (70-110)
[2019-11-30 15:30] VITALS: BP 140/86
[2019-11-30 19:53] VITALS: BP 123/80
[2019-11-30 21:06] LABS: GLUCOMETER DEV NAME(LOC) 4E.2; GLUCOSE,POINT OF CARE 187 MG/DL (70-110)
[2019-11-30 21:06] LABS: GLUCOMETER DEV NAME(LOC) 6N.1; GLUCOSE,POINT OF CARE 182 MG/DL (70-110)
[2019-12-01 00:02] VITALS: BP 110/66
[2019-12-01] MEDS: HYDROCODONE/ACETAMINOPHEN 5-325 MG TABLET PO PRN ×2 (00:45→05:10)
[2019-12-01] MEDS: HYDROmorphone 2 MG/ML SYRINGE IVP PRN (02:24)
[2019-12-01 04:11] VITALS: BP 107/66
[2019-12-01] MEDS: INSULIN LISPRO 100 UNITS/ML SQ PRN ×4 (05:19→21:20)
[2019-12-01 05:33] LABS: GLUCOMETER DEV NAME(LOC) 4E.2; GLUCOSE,POINT OF CARE 284 MG/DL (70-110)
[2019-12-01 06:50] LABS: BASOPHILS % (AUTO) 1.2 % (0.0-2.0); EOSINOPHILS % (AUTO) 3.7 % (1.0-6.0); HEMATOCRIT 34.8 % (36-46); HEMOGLOBIN 11.5 g/dL (12.0-16.0); LYMPHOCYTES # (AUTO) 3.6 K/uL (1.0-4.8); LYMPHOCYTES % (AUTO) 31.7 % (22.0-44.0); MEAN CORPUSCULAR HGB CONC 32.9 G/dL (31.0-37.0); MEAN CORPUSCULAR VOLUME 82 fL (80-100); MONOCYTES # (AUTO) 0.6 K/uL (0.1-1.0); MONOCYTES % (AUTO) 5.4 % (2.0-9.0); NEUTROPHILS # (AUTO) 6.5 K/uL (1.8-7.7); PLATELET COUNT (AUTO) 402 K/uL (150-450); RED BLOOD CELL COUNT(AUTO) 4.25 MIL/uL (4.00-5.20); RED CELL DISTRIBUTION WIDTH 13.7 % (11.5-14.5)
[2019-12-01 07:09] LABS: C-REACTIVE PROTEIN QUANT 0.89 mg/dL (0.00-0.30); CALCIUM, TOTAL 8.8 mg/dL (8.8-10.5); CREATININE 1.98 mg/dL (0.60-1.30)
[2019-12-01 07:19] VITALS: BP 114/69
[2019-12-01] MEDS ORDERED: HYDROCODONE/ACETAMINOPHEN 5-325 MG TABLET PO PRN (08:00)
[2019-12-01] MEDS ORDERED: VANCOMYCIN HCL 1.5 GM in DEXTROSE 5%-WATER 250 ML IV SCH (08:00)
[2019-12-01] MEDS: ENOXAPARIN SODIUM 40 MG/0.4 ML PF SYRINGE SQ SCH (08:11)
[2019-12-01] MEDS: FENOFIBRATE 48 MG TABLET PO SCH (08:11)
[2019-12-01] MEDS: OMEGA-3/DHA/EPA/FISH OIL 1,000 MG CAPSULE PO SCH (08:11)
[2019-12-01] MEDS: MULTIVITAMINS WITH MINERALS, THERAPEUTIC TABLET PO SCH (08:11)
[2019-12-01] MEDS: CYCLOBENZAPRINE HCL 10 MG TABLET PO SCH ×3 (08:11→21:15)
[2019-12-01] MEDS: NICOTINE 21 MG/24 HOUR PATCH TD SCH (08:12)
[2019-12-01] MEDS: VANCOMYCIN HCL 1.25 GM in SODIUM CHLORIDE 0.9% 250 ML IV SCH (08:12)
[2019-12-01] MEDS: HYDROCODONE/ACETAMINOPHEN 10-325 MG TABLET PO PRN ×4 (08:15→22:17)
[2019-12-01 08:39] LABS: GLUCOMETER DEV NAME(LOC) 4E.2; GLUCOSE,POINT OF CARE 255 MG/DL (70-110)
[2019-12-01] MEDS: MUPIROCIN CALCIUM 2% 22 GM OINTMENT NASAL SCH ×2 (09:16→21:15)
[2019-12-01] MEDS: INSULIN GLARGINE,HUM.REC.ANLOG 100 UNITS/ML SQ SCH ×2 (09:20→21:19)
[2019-12-01 11:33] VITALS: BP 112/70
[2019-12-01 12:49] LABS: GLUCOMETER DEV NAME(LOC) 6N.1; GLUCOSE,POINT OF CARE 220 MG/DL (70-110)
[2019-12-01 15:44] VITALS: BP 126/72
[2019-12-01] MEDS: SODIUM CHLORIDE 0.9% 1,000 ML IV SCH (15:59)
[2019-12-01 17:45] LABS: GLUCOMETER DEV NAME(LOC) 4E.2; GLUCOSE,POINT OF CARE 193 MG/DL (70-110)
[2019-12-01 20:07] VITALS: BP 124/58
[2019-12-01 21:40] LABS: GLUCOMETER DEV NAME(LOC) 6N.1; GLUCOSE,POINT OF CARE 260 MG/DL (70-110)
[2019-12-02] VITALS (7 sets, daily range): BP systolic 111–144; BP diastolic 69–84
[2019-12-02 01:14] LABS: CREATININE,URINE RANDOM 129.3 mg/dL (30.0-125.0); SODIUM,URINE RANDOM 32 mmol/l (20-110); UREA NITROGEN,URINE RANDOM 1055 mg/dL (350-1000)
[2019-12-02 01:17] LABS: APPEARANCE,URINE CLOUDY (CLEAR); BILIRUBIN,URINE NEGATIVE (NEGATIVE); GLUCOSE, URINE (UA) NEGATIVE (NEGATIVE); KETONES,URINE NEGATIVE (NEGATIVE); LEUKOCYTE ESTERASE ,URINE SMALL (NEGATIVE); NITRATE,URINE NEGATIVE (NEGATIVE); OCCULT BLOOD,URINE NEGATIVE (NEGATIVE); PROTEIN,URINE NEGATIVE (NEGATIVE); UROBILINOGEN,URINE 0.2 mg/dL (<=1.0)
[2019-12-02 01:19] LABS: RBC,URINE 0-2 /HPF (0-2)
[2019-12-02 01:20] LABS: BACTERIA,URINE Rare /HPF (None Seen); SQUAMOUS EPITHELIAL CELL,UR Moderate /LPF (None Seen); YEAST,URINE Rare /HPF (None Seen)
[2019-12-02] MEDS: HYDROCODONE/ACETAMINOPHEN 10-325 MG TABLET PO PRN ×5 (03:25→20:18)
[2019-12-02] MEDS: INSULIN LISPRO 100 UNITS/ML SQ PRN ×4 (05:44→22:14)
[2019-12-02] MEDS: SODIUM CHLORIDE 0.9% 1,000 ML IV SCH ×2 (05:46→22:12)
[2019-12-02 06:02] LABS: GLUCOMETER DEV NAME(LOC) 4E.2; GLUCOSE,POINT OF CARE 199 MG/DL (70-110)
[2019-12-02] MEDS: OMEGA-3/DHA/EPA/FISH OIL 1,000 MG CAPSULE PO SCH (07:44)
[2019-12-02] MEDS: VANCOMYCIN HCL 1.25 GM in SODIUM CHLORIDE 0.9% 250 ML IV SCH (07:44)
[2019-12-02] MEDS: MULTIVITAMINS WITH MINERALS, THERAPEUTIC TABLET PO SCH (07:45)
[2019-12-02] MEDS: FENOFIBRATE 48 MG TABLET PO SCH (07:45)
[2019-12-02] MEDS: ENOXAPARIN SODIUM 40 MG/0.4 ML PF SYRINGE SQ SCH (07:45)
[2019-12-02] MEDS: CYCLOBENZAPRINE HCL 10 MG TABLET PO SCH ×3 (07:45→20:18)
[2019-12-02] MEDS: INSULIN GLARGINE,HUM.REC.ANLOG 100 UNITS/ML SQ SCH ×2 (07:46→22:13)
[2019-12-02] MEDS: MUPIROCIN CALCIUM 2% 22 GM OINTMENT NASAL SCH ×2 (07:50→20:22)
[2019-12-02] MEDS: NICOTINE 21 MG/24 HOUR PATCH TD SCH (07:50)
[2019-12-02 08:20] LABS: CREATININE 1.5 mg/dL (0.60-1.30); MAGNESIUM 1.9 mg/dL (1.80-2.40); PHOSPHORUS 4.2 mg/dL (2.5-4.9); VANCOMYCIN,RANDOM 13.5 mcg/mL (25.0-50.0)
[2019-12-02] MEDS: GABAPENTIN 100 MG CAPSULE PO SCH ×2 (16:10→20:18)
[2019-12-02 17:07] LABS: GLUCOMETER DEV NAME(LOC) 4E.2; GLUCOSE,POINT OF CARE 183 MG/DL (70-110)
[2019-12-02 19:45] LABS: GLUCOMETER DEV NAME(LOC) 4E.2; GLUCOSE,POINT OF CARE 176 MG/DL (70-110)
[2019-12-02 21:08] LABS: GLUCOMETER DEV NAME(LOC) 4E.2; GLUCOSE,POINT OF CARE 204 MG/DL (70-110)
[2019-12-03] MEDS: HYDROCODONE/ACETAMINOPHEN 10-325 MG TABLET PO PRN ×2 (00:10→05:17)
[2019-12-03 05:09] VITALS: BP 120/71
[2019-12-03] MEDS: INSULIN LISPRO 100 UNITS/ML SQ PRN ×4 (05:18→20:49)
[2019-12-03 06:12] LABS: GLUCOMETER DEV NAME(LOC) 6N.1; GLUCOSE,POINT OF CARE 122 MG/DL (70-110)
[2019-12-03 07:04] LABS: CALCIUM, TOTAL 8.2 mg/dL (8.8-10.5); CREATININE 1.17 mg/dL (0.60-1.30)
[2019-12-03] MEDS: ENOXAPARIN SODIUM 40 MG/0.4 ML PF SYRINGE SQ SCH (08:13)
[2019-12-03] MEDS: MUPIROCIN CALCIUM 2% 22 GM OINTMENT NASAL SCH ×2 (08:13→20:49)
[2019-12-03] MEDS: MULTIVITAMINS WITH MINERALS, THERAPEUTIC TABLET PO SCH (08:14)
[2019-12-03] MEDS: CYCLOBENZAPRINE HCL 10 MG TABLET PO SCH ×3 (08:14→20:49)
[2019-12-03] MEDS: OMEGA-3/DHA/EPA/FISH OIL 1,000 MG CAPSULE PO SCH (08:14)
[2019-12-03] MEDS: GABAPENTIN 100 MG CAPSULE PO SCH (08:14)
[2019-12-03] MEDS: FENOFIBRATE 48 MG TABLET PO SCH (08:14)
[2019-12-03] MEDS: NICOTINE 21 MG/24 HOUR PATCH TD SCH (08:16)
[2019-12-03] MEDS: INSULIN GLARGINE,HUM.REC.ANLOG 100 UNITS/ML SQ SCH ×2 (08:16→20:50)
[2019-12-03 08:24] VITALS: BP 133/79
[2019-12-03] MEDS: VANCOMYCIN HCL 1.25 GM in SODIUM CHLORIDE 0.9% 250 ML IV SCH (08:53)
[2019-12-03] MEDS: GABAPENTIN 300 MG CAPSULE PO SCH ×3 (09:37→20:49)
[2019-12-03] MEDS: HYDROCODONE/ACETAMINOPHEN 5-325 MG TABLET PO PRN ×3 (09:37→21:47)
[2019-12-03 11:05] VITALS: BP 142/86
[2019-12-03 12:35] LABS: GLUCOMETER DEV NAME(LOC) 6N.1; GLUCOSE,POINT OF CARE 136 MG/DL (70-110)
[2019-12-03 15:24] VITALS: BP 125/76
[2019-12-03 18:13] LABS: GLUCOMETER DEV NAME(LOC) 4E.2; GLUCOSE,POINT OF CARE 168 MG/DL (70-110)
[2019-12-03 20:00] VITALS: BP 130/78
[2019-12-03] MEDS: VANCOMYCIN HCL 750 MG in SODIUM CHLORIDE 0.9% 250 ML IV SCH (20:48)
[2019-12-04 01:00] VITALS: BP 135/80
[2019-12-04] MEDS: HYDROCODONE/ACETAMINOPHEN 5-325 MG TABLET PO PRN ×2 (04:04→11:02)
[2019-12-04 04:06] VITALS: BP 101/66
[2019-12-04 06:18] LABS: CALCIUM, TOTAL 7.8 mg/dL (8.8-10.5); CREATININE 1.29 mg/dL (0.60-1.30)
[2019-12-04 06:36] LABS: GLUCOMETER DEV NAME(LOC) 4E.2; GLUCOSE,POINT OF CARE 115 MG/DL (70-110)
[2019-12-04 06:36] LABS: GLUCOMETER DEV NAME(LOC) 6N.1; GLUCOSE,POINT OF CARE 164 MG/DL (70-110)
[2019-12-04 07:55] VITALS: BP 136/71
[2019-12-04] MEDS: GABAPENTIN 300 MG CAPSULE PO SCH (08:24)
[2019-12-04] MEDS: CYCLOBENZAPRINE HCL 10 MG TABLET PO SCH (08:24)
[2019-12-04] MEDS: VANCOMYCIN HCL 750 MG in SODIUM CHLORIDE 0.9% 250 ML IV SCH (08:24)
[2019-12-04] MEDS: FENOFIBRATE 48 MG TABLET PO SCH (08:24)
[2019-12-04] MEDS: MULTIVITAMINS WITH MINERALS, THERAPEUTIC TABLET PO SCH (08:24)
[2019-12-04] MEDS: ENOXAPARIN SODIUM 40 MG/0.4 ML PF SYRINGE SQ SCH (08:24)
[2019-12-04] MEDS: OMEGA-3/DHA/EPA/FISH OIL 1,000 MG CAPSULE PO SCH (08:24)
[2019-12-04] MEDS: MUPIROCIN CALCIUM 2% 22 GM OINTMENT NASAL SCH (08:25)
[2019-12-04] MEDS: INSULIN GLARGINE,HUM.REC.ANLOG 100 UNITS/ML SQ SCH (08:28)
[2019-12-04] MEDS: NICOTINE 21 MG/24 HOUR PATCH TD SCH (08:37)
[2019-12-04 11:00] VITALS: BP 131/76
[2019-12-05 17:16] LABS: GLUCOMETER DEV NAME(LOC) 4E.2; GLUCOSE,POINT OF CARE 103 MG/DL (70-110)
== END 2019-12-04 12:55 | DRG 305 ==
LOC: EMS 12:16 → 4E 15:22
PROVIDERS: ADMIT Internal Medicine; ATTEND Internal Medicine
PROC: 0Y6M0ZB Detachment at Right Foot, Partial 2nd Ray, Open Approach (ICD-10-PCS; 2019-11-24)
PROC: 0Y6M0ZC Detachment at Right Foot, Partial 3rd Ray, Open Approach (ICD-10-PCS; 2019-11-24)
PROC: 0Y6M0ZD Detachment at Right Foot, Partial 4th Ray, Open Approach (ICD-10-PCS; 2019-11-24)
PROC: 0Y6M0ZF Detachment at Right Foot, Partial 5th Ray, Open Approach (ICD-10-PCS; 2019-11-24)
PROC: 0QBN0ZX Excision of Right Metatarsal, Open Approach, Diagnostic (ICD-10-PCS; 2019-11-24)
PROC: 0QBN0ZX Excision of Right Metatarsal, Open Approach, Diagnostic (ICD-10-PCS; 2019-11-24)
PROC: 0QBN0ZX Excision of Right Metatarsal, Open Approach, Diagnostic (ICD-10-PCS; 2019-11-24)
PROC: 0QBN0ZX Excision of Right Metatarsal, Open Approach, Diagnostic (ICD-10-PCS; 2019-11-24)
PROC: 0QBN0ZX Excision of Right Metatarsal, Open Approach, Diagnostic (ICD-10-PCS; 2019-11-24)
PROC: 0Y6M0Z9 Detachment at Right Foot, Partial 1st Ray, Open Approach (ICD-10-PCS; principal; 2019-11-24 07:30)
PROC: 02HV33Z Insertion of Infusion Device into Superior Vena Cava, Percutaneous Approach (ICD-10-PCS; 2019-11-30)
PROC: B548ZZA Ultrasonography of Superior Vena Cava, Guidance (ICD-10-PCS; 2019-11-30)
DX: E11.69 Type 2 diabetes mellitus with other specified complication (principal); R65.11 Systemic inflammatory response syndrome (SIRS) of non-infectious origin with acute organ dysfunction; N17.9 Acute kidney failure, unspecified; E44.0 Moderate protein-calorie malnutrition; E11.22 Type 2 diabetes mellitus with diabetic chronic kidney disease; E11.40 Type 2 diabetes mellitus with diabetic neuropathy, unspecified; D64.9 Anemia, unspecified; E11.621 Type 2 diabetes mellitus with foot ulcer; E11.65 Type 2 diabetes mellitus with hyperglycemia; L02.611 Cutaneous abscess of right foot; L97.519 Non-pressure chronic ulcer of other part of right foot with unspecified severity; B95.62 Methicillin resistant Staphylococcus aureus infection as the cause of diseases classified elsewhere; E78.5 Hyperlipidemia, unspecified; E86.0 Dehydration; F17.210 Nicotine dependence, cigarettes, uncomplicated; I12.9 Hypertensive chronic kidney disease with stage 1 through stage 4 chronic kidney disease, or unspecified chronic kidney disease; N18.9 Chronic kidney disease, unspecified; M86.8X7 Other osteomyelitis, ankle and foot; Z79.84 Long term (current) use of oral hypoglycemic drugs; Z83.3 Family history of diabetes mellitus; Z91.19 Patient's noncompliance with other medical treatment and regimen; Z68.30 Body mass index [BMI] 30.0-30.9, adult
CPT/HCPCS: 36245; 36569; 73720; 76770; 76937; 82570; 83735; 84100; 84300; 84540; 85651; 86140; 87040; 87070; 87081; 87086; 87205; 88307; 88311; 93925; A9585; G0378; J0131; J1170; J1644; J1650; J1815; J2250; J2543; J2704; J3010; J3370; J3490; J7030; J7050; J7060; J7120

== ENCOUNTER 2020-06-03 10:06 | Emergency (ER) | payer OTHER ==
[~2020-06-03] VITALS: Ht 177.8 cm; Wt 106.8 kg
[~2020-06-03 10:06] MED LIST changes: -DOXY100C PO; -METF-445 PO; +METF-960 PO
[2020-06-03] MEDS ORDERED: DOXYCYCLINE HYCLATE 100 MG in DEXTROSE 5%-WATER 100 ML IV ONE (10:45)
[2020-06-03] MEDS ORDERED: SODIUM CHLORIDE 0.9% 1,000 ML IV ONE (10:45)
[2020-06-03] MEDS ORDERED: 0.9% SODIUM CHLORIDE 10 ML SYRINGE IVP PRN (10:45)
[2020-06-03 11:04] LABS: BASOPHILS % (AUTO) 0.8 % (0.0-2.0); EOSINOPHILS % (AUTO) 2.2 % (1.0-6.0); HEMATOCRIT 38.1 % (36-46); LYMPHOCYTES # (AUTO) 1.6 K/uL (1.0-4.8); MEAN CORPUSCULAR HEMOGLOBIN 27.7 pg (26.0-34.0); MEAN CORPUSCULAR HGB CONC 34.2 G/dL (31.0-37.0); MEAN CORPUSCULAR VOLUME 81 fL (80-100); MONOCYTES # (AUTO) 0.7 K/uL (0.1-1.0); MONOCYTES % (AUTO) 5.6 % (2.0-9.0); NEUTROPHILS # (AUTO) 10.4 K/uL (1.8-7.7); NEUTROPHILS % (AUTO) 79.4 % (40.0-70.0); PLATELET COUNT (AUTO) 250 K/uL (150-450); RED BLOOD CELL COUNT(AUTO) 4.71 MIL/uL (4.00-5.20)
[2020-06-03 11:22] LABS: INR 0.9 (0.9-1.1)
[2020-06-03 11:31] LABS: LACTIC ACID 1.2 mmol/L (0.4-2.0)
[2020-06-03 11:37] LABS: CALCIUM, TOTAL 8.8 mg/dL (8.8-10.5); CREATININE 1.3 mg/dL (0.60-1.30); POTASSIUM 3.9 mmol/L (3.5-5.1)
[2020-06-03 11:41] LABS: BILIRUBIN,TOTAL 0.3 mg/dL (0.1-1.0); TOTAL PROTEIN, SERUM 7.7 g/dL (6.4-8.2)
[2020-06-03] MEDS ORDERED: IOVERSOL 320 MG/ML 100 ML VIAL ONE (12:12)
[2020-06-03] MEDS ORDERED: SODIUM CHLORIDE 0.9% 100 ML ONE (12:13)
[2020-06-03 13:12] VITALS: BP 115/58
== END 2020-06-03 13:28 | disposition home or self-care (01) ==
LOC: EMS 10:13
DX: L02.01 Cutaneous abscess of face (principal); L03.211 Cellulitis of face; E11.65 Type 2 diabetes mellitus with hyperglycemia; I10 Essential (primary) hypertension; F17.210 Nicotine dependence, cigarettes, uncomplicated; Z90.89 Acquired absence of other organs; Z88.5 Allergy status to narcotic agent; Z79.84 Long term (current) use of oral hypoglycemic drugs
CPT/HCPCS: 36415; 70487; 80053; 83605; 84702; 85025; 85610; 87040; 87070; 87077; 87205; 96365; 99173; 99285; J3490; J7030; J7050; J7060; Q9967

== ENCOUNTER 2020-06-03 20:20 | Emergency (ER) | payer OTHER ==
[~2020-06-03] VITALS: Ht 172.7 cm; Wt 90.9 kg
[2020-06-03] MEDS ORDERED: 0.9% SODIUM CHLORIDE 10 ML SYRINGE IVP PRN (22:00)
[2020-06-03 22:23] LABS: EOSINOPHILS % (AUTO) 1.7 % (1.0-6.0); HEMATOCRIT 36.8 % (36-46); HEMOGLOBIN 12.2 g/dL (12.0-16.0); LYMPHOCYTES # (AUTO) 1.1 K/uL (1.0-4.8); LYMPHOCYTES % (AUTO) 9.9 % (22.0-44.0); MEAN CORPUSCULAR HGB CONC 33.2 G/dL (31.0-37.0); MEAN CORPUSCULAR VOLUME 81 fL (80-100); MONOCYTES # (AUTO) 0.7 K/uL (0.1-1.0); MONOCYTES % (AUTO) 6.2 % (2.0-9.0); NEUTROPHILS # (AUTO) 9.3 K/uL (1.8-7.7); NEUTROPHILS % (AUTO) 81.2 % (40.0-70.0); PLATELET COUNT (AUTO) 227 K/uL (150-450); RED BLOOD CELL COUNT(AUTO) 4.53 MIL/uL (4.00-5.20); RED CELL DISTRIBUTION WIDTH 14.1 % (11.5-14.5)
[2020-06-03] MEDS ORDERED: ACETAMINOPHEN 325 MG TABLET PO ONE (22:45)
[2020-06-03] MEDS ORDERED: CefTRIAXone 1 GM/DEXTROSE 50 ML IV ONE (22:45)
[2020-06-03] MEDS ORDERED: KETOROLAC TROMETHAMINE 30 MG/ML VIAL IVP ONE (22:45)
[2020-06-03] MEDS ORDERED: SODIUM CHLORIDE 0.9% 1,000 ML IV ONE (22:45)
[2020-06-03 22:51] LABS: LACTIC ACID 1.9 mmol/L (0.4-2.0)
[2020-06-03 22:55] LABS: CALCIUM, TOTAL 8.2 mg/dL (8.8-10.5); CREATININE 1.44 mg/dL (0.60-1.30)
[2020-06-03] MEDS ORDERED: SULFAMETHOX/TRIMETH DS 800-160 MG/TABLET PO ONE (23:00)
[2020-06-03] MEDS ORDERED: CefTRIAXone SODIUM 2 GM in DEXTROSE 5%-WATER 50 ML IV ONE (23:00)
[2020-06-03 23:01] LABS: ALBUMIN 2.6 g/dL (3.4-5.0); BILIRUBIN,TOTAL 0.3 mg/dL (0.1-1.0); TOTAL PROTEIN, SERUM 7.1 g/dL (6.4-8.2)
[2020-06-04 01:06] VITALS: BP 135/73
[2020-06-04 05:03] LABS: GLUCOSE,POINT OF CARE 270 MG/DL (70-110)
== END 2020-06-04 01:28 | disposition home or self-care (01) ==
LOC: EMS 20:20
DX: L03.211 Cellulitis of face (principal); L02.01 Cutaneous abscess of face; E11.65 Type 2 diabetes mellitus with hyperglycemia; I10 Essential (primary) hypertension; F17.210 Nicotine dependence, cigarettes, uncomplicated; Z88.5 Allergy status to narcotic agent; Z79.84 Long term (current) use of oral hypoglycemic drugs
CPT/HCPCS: 36415; 80053; 82962; 83605; 85025; 87040; 93005; 96361; 96365; 96375; 99284; J0696; J1885; J7030; J7060

== ENCOUNTER 2023-09-03 17:12 | Emergency (ER) | payer OTHER ==
[~2023-09-03] VITALS: Ht 172.7 cm; Wt 81.0 kg
[~2023-09-03 17:12] MED LIST changes: +METF-1211 PO; -METF-960 PO
[2023-09-03] MEDS ORDERED: SULFAMETHOX/TRIMETH DS 800-160 MG/TABLET PO ONE (20:15)
[2023-09-03] MEDS ORDERED: CEPHALEXIN MONOHYDRATE 500 MG CAPSULE PO ONE (20:15)
[2023-09-03] MEDS ORDERED: CEPH-558 PO (20:18)
[2023-09-03] MEDS ORDERED: BACTDSB PO (20:18)
[2023-09-03] MEDS ORDERED: PERTUSS(ACELL),DIPH,TET VAC/PF 0.5 ML SYRINGE IM. ONE (20:30)
[2023-09-03 20:46] VITALS: BP 125/74; PULSE 89; RESP 16; TEMP 98.3
== END 2023-09-03 21:18 | disposition home or self-care (01) ==
LOC: EMS 17:14
DX: L02.512 Cutaneous abscess of left hand (principal); E11.65 Type 2 diabetes mellitus with hyperglycemia; I10 Essential (primary) hypertension; F17.210 Nicotine dependence, cigarettes, uncomplicated; Z90.49 Acquired absence of other specified parts of digestive tract; Z88.6 Allergy status to analgesic agent
CPT/HCPCS: 26010; 82962; 90471; 90715; 99284